=== PATIENT | female | born 1950 | race Caucasian/White ===

== ENCOUNTER 2020-10-17 06:12 | Day surgery (SDC) | payer MEDICARE, OTHER ==
[~2020-10-17] VITALS: Ht 157.5 cm; Wt 65.9 kg
[2020-10-17] MEDS ORDERED: BENZOCAINE 20% 50 MCG/SPRAY 57 GM TP ONE (06:13)
[2020-10-17] MEDS ORDERED: LIDOCAINE 2% 30 ML JELLY TP ONE (06:13)
[2020-10-17] MEDS ORDERED: ALBUTEROL SULFATE 2.5 MG/0.5 ML NEB SOLUTION NEB ONE (06:13)
[2020-10-17] MEDS ORDERED: LIDOCAINE 4% 50 ML SOLUTION TP ONE (06:13)
[2020-10-17] MEDS ORDERED: SODIUM CHLORIDE 0.9% 1,000 ML IV ONE (06:30)
[2020-10-17 07:03] LABS: GLUCOMETER DEV NAME(LOC) SDS.; GLUCOSE,POINT OF CARE 102 MG/DL (70-110)
[2020-10-17] MEDS ORDERED: IPRA4AER IH (07:41)
[2020-10-17] MEDS ORDERED: LORA-999 PO (07:41)
[2020-10-17] MEDS ORDERED: BUDE1AMP NEB (07:42)
[2020-10-17] MEDS ORDERED: HYDR25TA84 PO (07:43)
[2020-10-17] MEDS ORDERED: MIDO5TAB29 PO (07:44)
[2020-10-17] MEDS ORDERED: METF-960 PO (07:46)
[2020-10-17] MEDS ORDERED: SIME80TA12 PO (07:46)
[2020-10-17] MEDS ORDERED: BUSP5TAB20 PO (07:47)
[2020-10-17] MEDS ORDERED: FentaNYL CITRATE PF 100 MCG/2 ML VIAL ONE (07:48)
[2020-10-17] MEDS ORDERED: PYRI100T10 PO (07:48)
[2020-10-17] MEDS ORDERED: MIDAZOLAM HCL 2 MG/2 ML VIAL ONE (07:48)
[2020-10-17] MEDS ORDERED: LANS30CA56 PO (07:49)
[2020-10-17] MEDS ORDERED: MethylPREDNISolone SOD SUCC 125 MG/2 ML VIAL IVP ONE (09:00)
[2020-10-17] MEDS ORDERED: OXYGEN THERAPY IH SCH (20:00)
== END 2020-10-17 11:10 | disposition home or self-care (01) ==
LOC: SURGERY 06:12
PROVIDERS: ATTEND Internal Medicine Critical Care Medicine
DX: J38.4 Edema of larynx (principal); J32.8 Other chronic sinusitis; Z98.890 Other specified postprocedural states; Z79.899 Other long term (current) drug therapy
CPT/HCPCS: 31623; 31624; 71045; 82962; 87015; 87070; 87101; 87205; 87206; 87220; 88108; 88184; 88185; 88312; J2250; J3010; 87077; J7613; Z7610